=== PATIENT | female | born 1945 | race Caucasian/White ===

== ENCOUNTER 2020-06-01 07:27 | Emergency (ER) | payer OTHER ==
[2020-06-01] MEDS ORDERED: Fluorescein Opthalmic Strip ONE (07:42)
[2020-06-01] MEDS ORDERED: Tetracaine 0.5% OPHTH SOLN/PF 4 ML BOT ONE (07:42)
== END 2020-06-01 08:26 | disposition home or self-care (01) ==
LOC: BURERS 07:27
DX: S05.02XA Injury of conjunctiva and corneal abrasion without foreign body, left eye, initial encounter (principal); E03.9 Hypothyroidism, unspecified; E78.5 Hyperlipidemia, unspecified; Z79.899 Other long term (current) drug therapy; W22.8XXA Striking against or struck by other objects, initial encounter
CPT/HCPCS: 99283